=== PATIENT | male | born 2000 | race Caucasian/White ===

== ENCOUNTER 2024-12-01 09:34 | Emergency (ER) | payer BC, SELFPAY ==
[2024-12-01 09:57] VITALS: BP 153/89; PULSE 73; RESP 16; TEMP 37; O2SAT 99
--- NOTE | 2024-12-01 10:35 | ED_ITS ---
HPI - Ear Problem General Chief complaint: Ear Stated complaint: CLOGGED EAR Time Seen by Provider: 12/01/24 10:35 Source: patient, RN notes reviewed and old records reviewed Mode of arrival: ambulatory Limitations: no limitations History of Present Illness HPI Narrative: 24-year-old male presents to the [facility] with right ear clogged for several days. History of needing them cleaned out from wax. Reports decreased hearing. Related Data Allergies Allergy/AdvReac Type Severity Reaction Status Date / Time No Known Allergies Allergy Verified 12/01/24 09:57 Review of Systems Review of Systems: All systems reviewed & are unremarkable except as noted in HPI and below Constitutional: Constitutional: Reports no additional constitutional complaints ENT: Reports as per HPI and Denies otalgia Cardiovascular: Cardiovascular: Reports no additional cardiovascular complaints, Denies chest pain and Denies dyspnea Respiratory: Respiratory: Reports no additional respiratory complaints, Denies chest congestion, Denies cough and Denies dyspnea Musculoskeletal: Musculoskeletal: Reports no additional musculoskeletal complaints Integumentary/Breasts: Skin/Breast: Reports system reviewed and no additional complaints, except as docu PMFSH Comments At the time of my signature, I reviewed and agree with the nursing past medical, surgical, social, and family history. There is no relevant family history pertinent to the patient complaint. Exam Const: General: cooperative, healthy appearing, comfortable, no acute distress, well developed, alert and well nourished Nutritional Appearance: well nourished Orientation/consciousness: patient oriented x3 Limitations: no limitations HENMT: Head: normal to inspection Ears: external ears normal, mastoids normal, no periauricular adenopathy and Abnormal EAC present cerumen impaction bilateral; no erythema and no EA tenderness Mouth: Yes Normal oral and palatal mucosa present, Yes lip normal, Yes tongue normal and Yes moist mucous membranes Throat: posterior oropharynx normal, uvula midline and no uvular edema Eyes: General: appearance normal, both eyes and all related structures Alignment and Position: alignment normal Neck: Neck: normal visual inspection, full ROM, no lymphadenopathy and no meningeal signs Chest: Chest palpation & inspection: normal inspection of the chest Resp: Effort & Inspection: normal respiratory effort and able to speak in complete sentences Cardio: Rate: regular rate Skin: General skin exam: normal color and no rashes or lesions noted Neuro: General: patient oriented x3, gait normal, moves all extremities and no meningeal signs Cognition (Neuro): normal cognition Speech: normal speech Gait exam (Neuro): Normal gait present Extrem: General: normal to inspection, full ROM, capillary refill normal and normal gait Psych: Appearance: grossly normal and well kempt Mental Status: mental status grossly normal Speech and movement: Normal speech and movement present and Clear speech present Affect: normal affect Attitude: cooperative Course Course Level of Care: Express Care Visit Vital Signs Vital signs: Vital Signs Temperature 98.6 F 12/01/24 09:57 Pulse Rate 73 12/01/24 09:57 Respiratory Rate 16 12/01/24 09:57 Blood Pressure 153/89 H 12/01/24 09:57 Pulse Oximetry 99 12/01/24 09:57 Temperature 98.6 F 12/01/24 09:57 Pulse Rate 73 12/01/24 09:57 Respiratory Rate 16 12/01/24 09:57 Blood Pressure 153/89 H 12/01/24 09:57 Pulse Oximetry 99 12/01/24 09:57 Reviewed Procedures Ear Wax Removal Both Ears: Ear Wax Removal Date: 12/01/24 Ear Wax Removal Time: 10:40 Cerumenolytic Used: other (Peroxide) Results: Re-examined: cerumen removed completely TM Examination: TM(s) intact, normal appearance Ear Canal Exam: atraumatic ( left) and other ( inflammation on the right) Patient Tolerated Procedure: well Complications: no problems Technique: ear canal irrigated and ear canal curetted Additional Comments: procedure explained. Verbal consent obtained. Able to use curette and elephant irrigation, cleared earwax. Patient tolerated procedure Medical Decision Making MDM Narrative Medical decision making narrative: Patient sitting comfortably in exam room. Nontoxic, vitals stable. Patient in no acute distress Patient reports with ears clots. Cleaned wax out, successfully. Right ear wax was removed with some irritation to the ear canal. Prescribed ear drops reduce the chances of infection. Patient appropriate for outpatient treatment with follow-up Discharge instructions reviewed with patient, as well as provided in writing per nursing staff. The instructions also include specific and strict return/GO TO THE ER as well as f/u information. All questions have been answered, and the patient deny any further questions with discharge and discharge plan. Some parts of this dictation were generated by voice recognition software and may contain typographical and/or grammatical inaccuracies. Differential Diagnosis Differential Diagnosis: ear wax impaction, otitis media, serous otitis, otitis externa Medical Records Medical records reviewed: Yes I reviewed the external patient's medical records. Vital Signs Vital Signs: Vital Signs Temperature 98.6 F 12/01/24 09:57 Pulse Rate 73 12/01/24 09:57 Respiratory Rate 16 12/01/24 09:57 Blood Pressure 153/89 H 12/01/24 09:57 Pulse Oximetry 99 12/01/24 09:57 Temperature 98.6 F 12/01/24 09:57 Pulse Rate 73 12/01/24 09:57 Respiratory Rate 16 12/01/24 09:57 Blood Pressure 153/89 H 12/01/24 09:57 Pulse Oximetry 99 12/01/24 09:57 Reviewed Lab Data Lab results reviewed: Yes I reviewed the patient's lab results. Labs: Reviewed Critical Care Time Critical Care Time Critical Care Time: No Discharge Plan Discharge Clinical Impression: Bilateral impacted cerumen Patient Disposition: Home Condition: Stable Instructions: How to Use Ear Drops (ED) Additional Instructions: today your blood pressure was 153/89. It is recommended that you follow-up with your primary care provider within 2 weeks to have this rechecked. Untreated her undertreated blood pressure can lead to more serious health issues use the prescription ear drops as prescribed in the right ear You had Cerumen (EAR wax impaction). Do not use Q-tips or put anything in the ear. This can damage the ear. Instead , use Debrox or ear wax remover. Place 5 drops in ear after a hot shower and place a warm compress over the ear for 20 minutes. alternate doing this every 3-4 days. It will break up the wax gently. Do not use too much pressure. Once you have all of the cerumen out of your ears, you may do preventative treatment to prevent this from happening again. Use 5 drops once weekly after a hot shower. Patient Language: Thai Prescriptions: New [id number] 3.5-10,000-1 mg/mL-unit/mL-% drops,suspension 4 drp RIGHT EAR QID 7 Days Qty: 10 0RF Follow-up/Referrals: PHYSICIAN,[facility] [Primary Care Provider] - Time of Disposition: 10:57
== END 2024-12-01 11:05 | disposition home or self-care (01) ==
PROVIDERS: Emergency Provider Nurse Practitioner
DX: H61.23 Impacted cerumen, bilateral (principal)
CPT/HCPCS: 69210; 99213; A9270; G0463